=== PATIENT | male | born 1995 | race African-American/Black ===

== ENCOUNTER 2019-09-02 19:08 | Inpatient (IN) | payer OTHER ==
[~2019-09-02] VITALS: Ht 175.3 cm; Wt 61.1 kg
[2019-09-02] MEDS ORDERED: SODIUM CHLORIDE 0.9% 1,000 ML IV ONE (19:22)
[2019-09-02] MEDS ORDERED: PLEASE ENTER ALLERGIES MC SCH (19:30)
[2019-09-02] MEDS ORDERED: SODIUM CHLORIDE 0.9% 1,000ML IVBOLUS ONE ×2 (19:30→20:00)
[2019-09-02] MEDS ORDERED: PLEASE ENTER HEIGHT AND WEIGHT MC SCH (19:30)
[2019-09-02] MEDS ORDERED: SODIUM CHLORIDE FLUSH 10ML SYR IVF ONE ×2 (19:30)
--- NOTE | 2019-09-02 19:35 | NUR ---
LATE ENTRY: PT FRANCISCO JAVIER POST AFTER REPORTEDLY TELLING FRIENDS EARLIER HE DIDN'T WANT TO BE ALIVE ANYMORE. PT REPORTS HISTORY OF DIABETES, HTN, AND IS UNDERGOING HORMONE REPLACEMENT THERAPY TO TRANSITION FROM MALE TO FEMALE. UPON ARRIVAL, EMS FOUND PT FSBS 69. D10 WAS ADMINISTERED VIA PIV AND BLOOD SUGAR IMPROVED TO 112. PT VSS EN ROUTE WITH EKG SHOWING ST DEPRESSION. UPON ARRIVAL TO [facility] ED, PT IS ALERT X 2 AND TACHYPNIC. PT ATTACHED TO TIRE CENTER SUPERVISOR AND VS MACHINES. VSS AT THIS TIME. EKG DONE AT BS AND GIVEN TO DR ASHLEY. SECOND LINE STARTED ON PT AND LABS DRAWN. IV FLUIDS INITATED. DR BAIRES AT BS NOW FOR PT HISTORY AND ASSESSMENT. PT CHANGED INTO GOWN AND PROVIDED A WARM BLANKET AND HAS CALL LIGHT WITHIN REACH. REPEAT FSBS REVEALS GLUCOSE OF [id number]
[2019-09-02 19:37] LABS: MEAN CORPUSCULAR HEMOGLOBIN 29.4 pg (27.5-34.5); MEAN CORPUSCULAR VOLUME 91.8 fL (81-97); MEAN PLATELET VOLUME 7.1 fL (7.4-10.4); PLATELET COUNT 501 x10^3/uL (130-400); RED BLOOD COUNT 5.48 x10^6/uL (4.38-5.82); RED CELL DISTRIBUTION WIDTH 14.5 % (9.4-14.8)
[2019-09-02 19:40] LABS: PH, VENOUS 6.809 pH (7.320-7.420)
[2019-09-02 19:41] LABS: MD YES
--- NOTE | 2019-09-02 19:42 | NUR ---
PT TO CT VIA [facility] AT THIS TIME.
[2019-09-02 19:47] LABS: ALANINE AMINOTRANSFERASE 33 U/L (12-78); ALBUMIN 5.5 g/dL (3.4-5.0); ANION GAP 23 mmol/L (5-15); CALCIUM 7.7 mg/dL (8.5-10.1); CHLORIDE 110 mmol/L (98-107)
--- NOTE | 2019-09-02 19:50 | NUR ---
TASK RN: RECEIVED REPORT FROM REBEL ZHU TO ASSUME CARE OF PT. AT THIS TIME. PT. RETURNED FROM CT AT THIS TIME.
[2019-09-02] MEDS ORDERED: SODIUM BICARBONATE 1 MEQ/ML, 50ML VIAL IVPush ONE (20:00)
[2019-09-02 20:03] LABS: BAND#(MANUAL) 2.86 x10^3/uL; BANDS%(MANUAL) 7 % (0-7); LYMPH#(MANUAL) 1.63 x10^3/uL (1-3.4); LYMPHS% (MANUAL) 4 % (22-44); MONOS#(MANUAL) 2.45 x10^3/uL (0.3-2.7); MONOS% (MANUAL) 6 % (2-9); SEGS% (MANUAL) 83 % (42-75)
[2019-09-02 20:04] LABS: <PLATELET ESTIMATE> INCREASED; <PLT MORPHOLOGY> NORMAL PLT MORPH; <RBC MORPHOLOGY> NORMAL
[2019-09-02] MEDS ORDERED: SODIUM BICARBONATE 1 MEQ/ML, 50ML VIAL ONE (20:04)
[2019-09-02 20:05] LABS: ALKALINE PHOSPHATASE 111 U/L (45-117); BILIRUBIN,TOTAL 0.2 mg/dL (0.2-1.0); TOTAL PROTEIN 11.1 g/dL (6.4-8.2)
[2019-09-02] MEDS ORDERED: CALCIUM CHLORIDE 10%, 10ML SYR ONE (20:05)
[2019-09-02] MEDS ORDERED: INSULIN LISPRO SINGLE DOSE, ER SQ-INSULIN ONE (20:06)
[2019-09-02] MEDS ORDERED: DEXTROSE 50%, 50ML SYRINGE ONE (20:10)
[2019-09-02 20:25] LABS: ACETONE, SERUM Trace (Negative)
--- NOTE | 2019-09-02 20:29 | NUR ---
Dr. Monae at bs. plan to intubate pt. at this time. has been medicated for hyperkalemia.
[2019-09-02] MEDS ORDERED: INSULIN REGULAR 100 UNITS/ML, 3ML VIAL IVPush ONE (20:30)
[2019-09-02] MEDS ORDERED: CALCIUM CHLORIDE 10%, 10ML SYR IVPush ONE ×2 (20:30→22:30)
[2019-09-02] MEDS ORDERED: DEXTROSE 50%, 50ML SYRINGE IVPush ONE (20:30)
[2019-09-02] MEDS ORDERED: SODIUM BICARBONATE 8.4% 150 MEQ in DEXTROSE 5% 1,000 ML IV SCH (21:00)
[2019-09-02] MEDS ORDERED: SPIR100T4 PO (21:29)
[2019-09-02] MEDS ORDERED: ESTR5VIA IM (21:29)
[2019-09-02 21:31] LABS: SALICYLATE LEVEL < 1.7 mg/dL (2.8-20.0)
[2019-09-02] MEDS ORDERED: PROPOFOL 100 ML IV PRN (21:31)
[2019-09-02 21:36] LABS: AMPHETAMINE SCREEN, URINE Negative (Negative); BARBITURATE SCREEN, URINE Negative (Negative); BENZODIAZEPINE SCREEN, URINE Negative (Negative); CANNABINOID SCREEN, URINE Negative (Negative); COCAINE SCREEN, URINE Negative (Negative); METHADONE SCREEN, URINE Negative (Negative); OPIATE SCREEN, URINE Negative (Negative)
[2019-09-02 21:42] LABS: MICROSCOPIC INDICATED
--- NOTE | 2019-09-02 21:50 | NUR ---
DR. HOPKINS AT TO PLACE TEMPORARY DIALYSIS CATHETER. DR. BAIERS AND DR. HAILE SIGNED CONSENT ON BEHALF OF PT FOR EMERGENT PLACEMENT.
[2019-09-02 21:55] LABS: CULTURE INDICATED? YES
[2019-09-02 21:58] LABS: CHOL/HDL RATIO 2.6; LDL/HDL RATIO 0.8 (0.5-3.0)
[2019-09-02] MEDS ORDERED: ETOMIDATE 20 MG/10 ML IV ONE (22:00)
[2019-09-02] MEDS ORDERED: ROCURONIUM 10 MG/ML,10ML IVPush ONE (22:00)
--- NOTE | 2019-09-02 22:00 | NUR ---
DIALYSIS CATH PLACED AND X-RAY COMPELTED.
--- NOTE | 2019-09-02 22:11 | NUR ---
LATE ENTRY: PT. WAS INTUBATED WITH AN 8.0 TUBE @ 2034. AFTER INTUBATION EQUAL CHEST RISE AND FALL BILAT AND EQUAL BREATH SOUNDS BILAT.
--- NOTE | 2019-09-02 22:21 | NUR ---
REASSUMING CARE OF PT FROM REBEL DUBON.
--- NOTE | 2019-09-02 22:21 | NUR ---
REPORT BACK TO REBEL ZHU TO REASSUME PT. CARE.
[2019-09-02] MEDS ORDERED: VANCOMYCIN PER PHARMACY MC PRN (22:30)
[2019-09-02] MEDS ORDERED: PHARMACY MAY ADJ FOR RENAL FX MC PRN (22:30)
[2019-09-02] MEDS ORDERED: SODIUM CHLORIDE FLUSH 10ML SYR IVF PRN (22:30)
--- NOTE | 2019-09-02 22:38 | NUR ---
PT. MEDS TAKEN TO PHARMACY/ SLIP WITH PT. CHART.
--- NOTE | 2019-09-02 22:41 | NUR ---
REPORT OF PT TO REBEL CATES. ALL QUESTIONS ANSWERED.
--- NOTE | 2019-09-02 22:50 | NUR ---
THIS RN ON THE PHONE WITH POISON CONTROL DISCUSSING PT. STORY.
--- NOTE | 2019-09-02 22:54 | NUR ---
POISON CONTROL CASE #[id number]
[2019-09-02] MEDS ORDERED: FOMEPIZOLE 1 GM in SODIUM CHLORIDE 0.9% 100 ML IV ONE (23:00)
--- NOTE | 2019-09-02 23:02 | NUR ---
PT TRANSPORTED TO CCU WITH ASSISTANCE OF WILLAM NAZARIO. RT AT BS TO ASSIST WITH TRANSPORT OF VENTILATOR. ALL QUESTIONS ANSWERED AT ICU BS.
[2019-09-02] MEDS ORDERED: NOREPINEPHRINE 8 MG in SODIUM CHLORIDE 0.9% 242 ML IV PRN (23:22)
[2019-09-02] MEDS ORDERED: ACETAMINOPHEN 650 MG/20.3 ML UDC PO/NG PRN (23:30)
[2019-09-02] MEDS ORDERED: PHARMACOKINETIC CONSULTATION MC ONE (23:30)
[2019-09-02] MEDS ORDERED: GLUCAGON 1 MG IM PRN (23:30)
[2019-09-02] MEDS ORDERED: FAMOTIDINE 20 MG/2 ML IV SCH (23:30)
[2019-09-02] MEDS ORDERED: SENNA 176 MG/5 ML ORAL SOL NG PRN (23:30)
[2019-09-02] MEDS ORDERED: DEXTROSE 4 GM TAB.CHEW PO PRN (23:30)
[2019-09-02] MEDS ORDERED: PIPERACILLIN/TAZO/PMX 3.375GM 50 ML IV SCH (23:30)
[2019-09-02] MEDS ORDERED: DEXTROSE 50%, 50ML SYRINGE IVPush PRN (23:30)
[2019-09-02] MEDS ORDERED: PHARMACOKINETIC MONITORING MC PRN (23:30)
[2019-09-02] MEDS ORDERED: SENNA/DOCUSATE TABLET NG PRN (23:30)
[2019-09-02] MEDS ORDERED: VANCOMYCIN 1,300 MG in SODIUM CHLORIDE 0.9% 250 ML IV ONE (23:30)
[2019-09-02] MEDS ORDERED: BISACODYL 10 MG SUPP PR PRN (23:30)
[2019-09-02] MEDS ORDERED: LACTULOSE 20 GM/30 ML UDC NG PRN (23:30)
[2019-09-02] MEDS ORDERED: LIDOCAINE-MPF 1%, 2ML ENDO PRN (23:30)
[2019-09-02] MEDS ORDERED: PHARMACY MAY ADJ FOR RENAL FX MC SCH (23:30)
[2019-09-03] MEDS: PIPERACILLIN/TAZO/PMX 2.25GM 50 ML IV SCH ×4 (01:04→21:00)
[2019-09-03 02:03] LABS: CREATININE,URINE RANDOM 46.2 mg/dL
[2019-09-03 04:00] VITALS: BP 110/72
[2019-09-03] MEDS: SODIUM CHLORIDE 0.9% IV SCH ×3 (04:36→22:05)
[2019-09-03] MEDS: FOMEPIZOLE IV SCH ×3 (04:36→22:05)
[2019-09-03] MEDS ORDERED: ROCURONIUM 10MG/ML,5ML ONE (05:00)
[2019-09-03] MEDS ORDERED: ETOMIDATE 20 MG/10 ML ONE (05:00)
[2019-09-03] MEDS ORDERED: PROPOFOL 10 MG/ML, 100ML IV ONE (05:00)
[2019-09-03] MEDS: PROPOFOL 100 ML IV PRN ×3 (05:47→21:01)
[2019-09-03 05:49] LABS: ANION GAP 17 mmol/L (5-15); CHLORIDE 101 mmol/L (98-107); CREATININE 2.45 mg/dL (0.7-1.3)
[2019-09-03 06:13] LABS: SALICYLATE LEVEL < 1.7 mg/dL (2.8-20.0)
[2019-09-03] MEDS: HEPARIN 5,000 UNITS/ML, 1ML SQ SCH ×3 (06:31→21:44)
[2019-09-03] MEDS: FAMOTIDINE 20 MG/2 ML IV SCH (06:31)
[2019-09-03] MEDS ORDERED: MAGNESIUM SULFATE/D5W 100 ML IV ONE (07:00)
[2019-09-03] MEDS: THIAMINE 100 MG in SODIUM CHLORIDE 0.9% 50 ML IV SCH (07:00)
[2019-09-03] MEDS ORDERED: THIAMINE 200 MG in SODIUM CHLORIDE 0.9% 50 ML IV ONE (07:00)
[2019-09-03 07:25] LABS: HEMOGRAM NOTE RECHECKED; MEAN CORPUSCULAR HEMOGLOBIN 29.3 pg (27.5-34.5); MEAN CORPUSCULAR HGB CONC 32.7 g/dL (33.2-36.2); MEAN CORPUSCULAR VOLUME 89.5 fL (81-97); MEAN PLATELET VOLUME 6.1 fL (7.4-10.4); PLATELET COUNT 100 x10^3/uL (130-400); RED BLOOD COUNT 4.12 x10^6/uL (4.38-5.82); RED CELL DISTRIBUTION WIDTH 14.1 % (9.4-14.8)
[2019-09-03] MEDS: INSULIN LISPRO 100 UNITS/ML, PEN SQ-INSULIN SCH ×4 (07:53→21:00)
[2019-09-03] MEDS: SODIUM CHLORIDE FLUSH 10ML SYR IVF SCH ×2 (08:00→21:44)
[2019-09-03 08:56] LABS: MD YES
[2019-09-03 08:57] LABS: <RBC MORPHOLOGY> NORMAL; BAND#(MANUAL) 2.35 x10^3/uL; BANDS%(MANUAL) 8 % (0-7); LYMPH#(MANUAL) 1.18 x10^3/uL (1-3.4); LYMPHS% (MANUAL) 4 % (22-44); MONOS#(MANUAL) 1.18 x10^3/uL (0.3-2.7); MONOS% (MANUAL) 4 % (2-9); SEGS% (MANUAL) 84 % (42-75)
[2019-09-03 08:58] LABS: <PLATELET ESTIMATE> DECREASED; <PLT MORPHOLOGY> NORMAL PLT MORPH
[2019-09-03 10:21] LABS: MEAN CORPUSCULAR HEMOGLOBIN 29.6 pg (27.5-34.5); MEAN CORPUSCULAR HGB CONC 33.1 g/dL (33.2-36.2); MEAN CORPUSCULAR VOLUME 89.4 fL (81-97); MEAN PLATELET VOLUME 6.2 fL (7.4-10.4); PLATELET COUNT 105 x10^3/uL (130-400); RED BLOOD COUNT 3.89 x10^6/uL (4.38-5.82); RED CELL DISTRIBUTION WIDTH 13.9 % (9.4-14.8)
[2019-09-03 10:29] LABS: INTERNATIONAL NORMALIZED RATIO 1.09 (0.93-1.1); PROTHROMBIN TIME 11.6 Seconds (9.6-11.5)
[2019-09-03 10:32] LABS: ALBUMIN 3.1 g/dL (3.4-5.0); ANION GAP 11 mmol/L (5-15); CALCIUM 7.6 mg/dL (8.5-10.1); CHLORIDE 99 mmol/L (98-107)
[2019-09-03 10:37] LABS: ALANINE AMINOTRANSFERASE 22 U/L (12-78); ALKALINE PHOSPHATASE 48 U/L (45-117); BILIRUBIN,TOTAL 0.6 mg/dL (0.2-1.0); CREATININE 3.05 mg/dL (0.7-1.3); TOTAL PROTEIN 6.5 g/dL (6.4-8.2)
[2019-09-03 10:42] LABS: MD YES
[2019-09-03 10:43] LABS: BAND#(MANUAL) 2.92 x10^3/uL; BANDS%(MANUAL) 11 % (0-7); LYMPH#(MANUAL) 0.53 x10^3/uL (1-3.4); LYMPHS% (MANUAL) 2 % (22-44); MONOS#(MANUAL) 1.59 x10^3/uL (0.3-2.7); MONOS% (MANUAL) 6 % (2-9); SEG#(MANUAL) 21.47 x10^3/uL (1.8-6.8); SEGS% (MANUAL) 81 % (42-75)
[2019-09-03 10:44] LABS: <PLATELET ESTIMATE> DECREASED; <PLT MORPHOLOGY> NORMAL PLT MORPH; <RBC MORPHOLOGY> NORMAL
[2019-09-03 11:39] LABS: CREATINE KINASE, TOTAL 216 U/L (39-308)
[2019-09-03] MEDS ORDERED: SODIUM BICARBONATE 8.4% 150 MEQ in DEXTROSE 5% 1,000 ML IV SCH (21:00)
[2019-09-03] MEDS ORDERED: LAMOTRIGINE 200 MG TABLET PO SCH (21:00)
[2019-09-03] MEDS: FENTANYL PF 100 MCG/2ML IVPush PRN ×2 (21:44→23:42)
[2019-09-03] MEDS: SODIUM CHLORIDE 0.9% 1,000 ML IV SCH (21:44)
[2019-09-04] MEDS: PROPOFOL 100 ML IV PRN ×2 (00:20→04:28)
[2019-09-04] MEDS: PIPERACILLIN/TAZO/PMX 2.25GM 50 ML IV SCH ×4 (01:59→21:43)
[2019-09-04] MEDS: INSULIN LISPRO 100 UNITS/ML, PEN SQ-INSULIN SCH ×4 (04:00→22:00)
[2019-09-04] MEDS: FAMOTIDINE 20 MG/2 ML IV SCH (04:28)
[2019-09-04] MEDS: HEPARIN 5,000 UNITS/ML, 1ML SQ SCH ×3 (04:28→20:21)
[2019-09-04 05:02] LABS: ALBUMIN 2.9 g/dL (3.4-5.0); ANION GAP 7 mmol/L (5-15); CALCIUM 8.2 mg/dL (8.5-10.1); CHLORIDE 98 mmol/L (98-107)
[2019-09-04 05:07] LABS: ALANINE AMINOTRANSFERASE 19 U/L (12-78); ALKALINE PHOSPHATASE 49 U/L (45-117); BILIRUBIN,TOTAL 0.6 mg/dL (0.2-1.0); CREATININE 3.61 mg/dL (0.7-1.3); TOTAL IRON BINDING CAPACITY 257 mcg/dL (250-450); TOTAL PROTEIN 6.7 g/dL (6.4-8.2); VANCOMYCIN,RANDOM 9.3 mcg/mL
[2019-09-04 05:10] LABS: % IRON SATURATION 16 % (20-55); IRON LEVEL 42 mcg/dL (65-175)
[2019-09-04 05:18] LABS: MEAN CORPUSCULAR HEMOGLOBIN 29.4 pg (27.5-34.5); MEAN CORPUSCULAR HGB CONC 32.3 g/dL (33.2-36.2); MEAN PLATELET VOLUME 6.8 fL (7.4-10.4); PLATELET COUNT 143 x10^3/uL (130-400); RED CELL DISTRIBUTION WIDTH 13.4 % (9.4-14.8)
[2019-09-04 05:49] LABS: MD YES
[2019-09-04 05:50] LABS: MONOS#(MANUAL) 0.71 x10^3/uL (0.3-2.7); MONOS% (MANUAL) 3 % (2-9)
[2019-09-04 05:51] LABS: <RBC MORPHOLOGY> NORMAL; BAND#(MANUAL) 0.95 x10^3/uL; BANDS%(MANUAL) 4 % (0-7); LYMPHS% (MANUAL) 8 % (22-44); SEG#(MANUAL) 20.23 x10^3/uL (1.8-6.8); SEGS% (MANUAL) 85 % (42-75)
[2019-09-04 05:52] LABS: <PLATELET ESTIMATE> ADEQUATE; <PLT MORPHOLOGY> NORMAL PLT MORPH
[2019-09-04] MEDS: THIAMINE 100 MG in SODIUM CHLORIDE 0.9% 50 ML IV SCH (07:53)
[2019-09-04] MEDS ORDERED: ARIPIPRAZOLE 10 MG TABLET PO SCH (09:00)
[2019-09-04] MEDS ORDERED: VANCOMYCIN 1,300 MG in SODIUM CHLORIDE 0.9% 250 ML IV ONE (10:00)
[2019-09-04] MEDS: SODIUM CHLORIDE 0.9% IV SCH (10:09)
[2019-09-04] MEDS: FOMEPIZOLE IV SCH (10:09)
[2019-09-04 10:21] LABS: ALBUMIN 3.1 g/dL (3.4-5.0); ANION GAP 7 mmol/L (5-15); CALCIUM 8.3 mg/dL (8.5-10.1); CHLORIDE 102 mmol/L (98-107); CREATININE 4.48 mg/dL (0.7-1.3)
[2019-09-04] MEDS: SODIUM CHLORIDE FLUSH 10ML SYR IVF SCH ×2 (11:21→20:21)
[2019-09-04] MEDS: SODIUM CHLORIDE 0.9% 1,000 ML IV SCH (19:40)
[2019-09-04 19:59] VITALS: BP 134/76
[2019-09-04] MEDS: FOMEPIZOLE 1 GM in SODIUM CHLORIDE 0.9% 100 ML IV SCH (22:17)
[2019-09-05 00:17] VITALS: BP 111/62
[2019-09-05 03:53] LABS: MEAN CORPUSCULAR HEMOGLOBIN 29.5 pg (27.5-34.5); MEAN CORPUSCULAR HGB CONC 33.3 g/dL (33.2-36.2); MEAN CORPUSCULAR VOLUME 88.5 fL (81-97); MEAN PLATELET VOLUME 6.4 fL (7.4-10.4); PLATELET COUNT 161 x10^3/uL (130-400); RED CELL DISTRIBUTION WIDTH 13.3 % (9.4-14.8)
[2019-09-05 04:02] LABS: ALANINE AMINOTRANSFERASE 21 U/L (12-78); ALBUMIN 2.8 g/dL (3.4-5.0); ANION GAP 10 mmol/L (5-15); CHLORIDE 100 mmol/L (98-107); CREATININE 7.19 mg/dL (0.7-1.3)
[2019-09-05 04:04] LABS: ALKALINE PHOSPHATASE 46 U/L (45-117); BILIRUBIN,TOTAL 0.7 mg/dL (0.2-1.0); TOTAL PROTEIN 6.4 g/dL (6.4-8.2)
[2019-09-05 04:12] LABS: MD YES
[2019-09-05 04:29] LABS: EOS#(MANUAL) 0.33 x10^3/uL (0.0-0.4); EOS% (MANUAL) 2 % (1-7); LYMPHS% (MANUAL) 14 % (22-44); MONOS#(MANUAL) 0.98 x10^3/uL (0.3-2.7); MONOS% (MANUAL) 6 % (2-9); SEG#(MANUAL) 12.79 x10^3/uL (1.8-6.8); SEGS% (MANUAL) 78 % (42-75)
[2019-09-05 04:47] LABS: <PLATELET ESTIMATE> ADEQUATE; <PLT MORPHOLOGY> NORMAL PLT MORPH; <RBC MORPHOLOGY> NORMAL
[2019-09-05] MEDS: HEPARIN 5,000 UNITS/ML, 1ML SQ SCH ×2 (05:02→13:00)
[2019-09-05] MEDS: FAMOTIDINE 20 MG/2 ML IV SCH (05:02)
[2019-09-05] MEDS: PIPERACILLIN/TAZO/PMX 2.25GM 50 ML IV SCH ×3 (05:38→22:39)
[2019-09-05 06:40] VITALS: BP 121/71
[2019-09-05] MEDS: INSULIN LISPRO 100 UNITS/ML, PEN SQ-INSULIN SCH ×4 (07:59→20:07)
[2019-09-05] MEDS ORDERED: LACTULOSE 10 GM/15 ML UDC PO PRN (08:00)
[2019-09-05] MEDS: SENNA/DOCUSATE TABLET PO SCH ×2 (08:46→21:00)
[2019-09-05] MEDS: SODIUM CHLORIDE FLUSH 10ML SYR IVF SCH ×2 (08:47→20:10)
[2019-09-05] MEDS ORDERED: FAMOTIDINE 20 MG TABLET PO SCH (09:00)
[2019-09-05] MEDS: FOMEPIZOLE 1 GM in SODIUM CHLORIDE 0.9% 100 ML IV SCH (13:00)
[2019-09-05] MEDS: SODIUM CHLORIDE 0.9% 1,000 ML IV SCH (15:09)
[2019-09-05 15:52] VITALS: BP 118/81
[2019-09-05 20:05] VITALS: BP 155/88
[2019-09-05] MEDS: FAMOTIDINE 20 MG TABLET PO SCH (20:10)
[2019-09-06] MEDS: HEPARIN 5,000 UNITS/ML, 1ML SQ SCH ×4 (01:04→22:02)
[2019-09-06 01:07] VITALS: BP 147/91
[2019-09-06] MEDS: FOMEPIZOLE 1 GM in SODIUM CHLORIDE 0.9% 100 ML IV SCH ×2 (02:48→15:34)
[2019-09-06] MEDS: SODIUM CHLORIDE 0.9% 1,000 ML IV SCH ×2 (02:48→17:41)
[2019-09-06] MEDS: PIPERACILLIN/TAZO/PMX 2.25GM 50 ML IV SCH ×3 (05:44→22:03)
[2019-09-06 05:59] LABS: BASOPHILS # (AUTO) 0.04 x10^3/uL (0-0.1); BASOPHILS % (AUTO) 0 % (0-1); EOSINOPHILS % (AUTO) 4 % (1-7); LYMPHOCYTES # (AUTO) 1.49 x10^3/uL (1-3.4); LYMPHOCYTES % (AUTO) 14 % (22-44); MD NO; MEAN CORPUSCULAR HEMOGLOBIN 29.3 pg (27.5-34.5); MEAN CORPUSCULAR HGB CONC 32.9 g/dL (33.2-36.2); MEAN CORPUSCULAR VOLUME 88.9 fL (81-97); MEAN PLATELET VOLUME 7.1 fL (7.4-10.4); MONOCYTES # (AUTO) 0.91 x10^3/uL (0.2-0.8); MONOCYTES % (AUTO) 9 % (2-9); NEUTROPHILS # (AUTO) 7.88 x10^3/uL (1.8-6.8); NEUTROPHILS % (AUTO) 74 % (42-75); PLATELET COUNT 187 x10^3/uL (130-400); RED BLOOD COUNT 3.79 x10^6/uL (4.38-5.82); RED CELL DISTRIBUTION WIDTH 13.1 % (9.4-14.8)
[2019-09-06 06:04] LABS: CHLORIDE 97 mmol/L (98-107)
[2019-09-06 06:11] LABS: ALANINE AMINOTRANSFERASE 23 U/L (12-78); ALBUMIN 2.6 g/dL (3.4-5.0); ALKALINE PHOSPHATASE 49 U/L (45-117); ANION GAP 11 mmol/L (5-15); BILIRUBIN,TOTAL 0.5 mg/dL (0.2-1.0); CALCIUM 8.2 mg/dL (8.5-10.1); CREATININE 6.72 mg/dL (0.7-1.3); TOTAL PROTEIN 6.2 g/dL (6.4-8.2)
[2019-09-06] MEDS: INSULIN LISPRO 100 UNITS/ML, PEN SQ-INSULIN SCH ×4 (07:00→21:00)
[2019-09-06] MEDS ORDERED: POTASSIUM CHLORIDE 20 MEQ TAB.ER.PRT PO ONE (07:30)
[2019-09-06 07:38] VITALS: BP 142/94
[2019-09-06] MEDS: SODIUM CHLORIDE FLUSH 10ML SYR IVF SCH ×2 (09:03→21:00)
[2019-09-06] MEDS: SENNA/DOCUSATE TABLET PO SCH ×2 (09:03→21:00)
[2019-09-06] MEDS: LOSARTAN 50MG TABLET PO SCH (11:33)
[2019-09-06 11:35] VITALS: BP 143/88
[2019-09-06 14:01] VITALS: BP 151/97
[2019-09-06] MEDS: FAMOTIDINE 20 MG TABLET PO SCH (20:10)
[2019-09-06 20:13] VITALS: BP 158/97
[2019-09-06] MEDS: ONDANSETRON 2MG/ML, 2ML IVPush PRN ×2 (20:20→21:20)
[2019-09-07] MEDS: FOMEPIZOLE 1 GM in SODIUM CHLORIDE 0.9% 100 ML IV SCH (02:29)
[2019-09-07 02:46] VITALS: BP 135/89
[2019-09-07] MEDS: PIPERACILLIN/TAZO/PMX 2.25GM 50 ML IV SCH ×2 (05:30→18:34)
[2019-09-07] MEDS: SODIUM CHLORIDE 0.9% 1,000 ML IV SCH ×2 (05:30→22:15)
[2019-09-07 06:05] LABS: BASOPHILS # (AUTO) 0.04 x10^3/uL (0-0.1); BASOPHILS % (AUTO) 0 % (0-1); EOSINOPHILS # (AUTO) 0.73 x10^3/uL (0-0.4); EOSINOPHILS % (AUTO) 7 % (1-7); LYMPHOCYTES # (AUTO) 1.71 x10^3/uL (1-3.4); LYMPHOCYTES % (AUTO) 16 % (22-44); MD NO; MEAN CORPUSCULAR HEMOGLOBIN 29.6 pg (27.5-34.5); MEAN CORPUSCULAR HGB CONC 33.2 g/dL (33.2-36.2); MEAN PLATELET VOLUME 7.3 fL (7.4-10.4); MONOCYTES # (AUTO) 1.13 x10^3/uL (0.2-0.8); MONOCYTES % (AUTO) 10 % (2-9); NEUTROPHILS # (AUTO) 7.23 x10^3/uL (1.8-6.8); NEUTROPHILS % (AUTO) 67 % (42-75); PLATELET COUNT 254 x10^3/uL (130-400); RED BLOOD COUNT 3.88 x10^6/uL (4.38-5.82); RED CELL DISTRIBUTION WIDTH 12.9 % (9.4-14.8)
[2019-09-07 06:13] LABS: CHLORIDE 99 mmol/L (98-107)
[2019-09-07 06:18] LABS: ALANINE AMINOTRANSFERASE 27 U/L (12-78); ALBUMIN 2.5 g/dL (3.4-5.0); ALKALINE PHOSPHATASE 54 U/L (45-117); ANION GAP 11 mmol/L (5-15); BILIRUBIN,TOTAL 0.5 mg/dL (0.2-1.0); CREATININE 8.96 mg/dL (0.7-1.3)
[2019-09-07] MEDS: INSULIN LISPRO 100 UNITS/ML, PEN SQ-INSULIN SCH ×4 (07:00→20:15)
[2019-09-07 08:03] VITALS: BP 154/91
[2019-09-07] MEDS: HEPARIN 5,000 UNITS/ML, 1ML SQ SCH ×2 (08:07→18:34)
[2019-09-07] MEDS: LOSARTAN 50MG TABLET PO SCH (08:07)
[2019-09-07] MEDS: SODIUM CHLORIDE FLUSH 10ML SYR IVF SCH ×2 (08:08→20:13)
[2019-09-07] MEDS: SENNA/DOCUSATE TABLET PO SCH ×2 (08:08→20:10)
[2019-09-07 11:40] VITALS: BP 134/76
[2019-09-07 13:48] VITALS: BP 142/89
[2019-09-07 20:03] VITALS: BP 141/80
[2019-09-07] MEDS: FAMOTIDINE 20 MG TABLET PO SCH (20:10)
[2019-09-07] MEDS: ACETAMINOPHEN 325 MG TABLET PO PRN (20:11)
[2019-09-07] MEDS ORDERED: TEMAZEPAM 15 MG CAPSULE PO PRN (21:30)
[2019-09-08 00:57] VITALS: BP 122/73
[2019-09-08] MEDS: PIPERACILLIN/TAZO/PMX 2.25GM 50 ML IV SCH ×3 (02:38→18:25)
[2019-09-08] MEDS: HEPARIN 5,000 UNITS/ML, 1ML SQ SCH ×3 (02:38→17:40)
[2019-09-08 06:13] LABS: ALANINE AMINOTRANSFERASE 43 U/L (12-78); ALBUMIN 2.4 g/dL (3.4-5.0); ANION GAP 7 mmol/L (5-15); CHLORIDE 99 mmol/L (98-107); CREATININE 7.32 mg/dL (0.7-1.3)
[2019-09-08 06:16] LABS: ALKALINE PHOSPHATASE 50 U/L (45-117); BILIRUBIN,TOTAL 0.5 mg/dL (0.2-1.0); TOTAL PROTEIN 5.8 g/dL (6.4-8.2)
[2019-09-08 06:23] LABS: MEAN CORPUSCULAR HEMOGLOBIN 29.3 pg (27.5-34.5); MEAN CORPUSCULAR HGB CONC 33.2 g/dL (33.2-36.2); MEAN CORPUSCULAR VOLUME 88.2 fL (81-97); RED BLOOD COUNT 3.98 x10^6/uL (4.38-5.82); RED CELL DISTRIBUTION WIDTH 12.9 % (9.4-14.8)
[2019-09-08 06:56] LABS: BASOPHILS # (AUTO) 0.04 x10^3/uL (0-0.1); BASOPHILS % (AUTO) 0 % (0-1); EOSINOPHILS # (AUTO) 0.86 x10^3/uL (0-0.4); EOSINOPHILS % (AUTO) 7 % (1-7); LYMPHOCYTES # (AUTO) 1.83 x10^3/uL (1-3.4); LYMPHOCYTES % (AUTO) 14 % (22-44); MD SCAN; MEAN PLATELET VOLUME 7.1 fL (7.4-10.4); MONOCYTES % (AUTO) 12 % (2-9); NEUTROPHILS # (AUTO) 8.85 x10^3/uL (1.8-6.8); NEUTROPHILS % (AUTO) 68 % (42-75); PLATELET COUNT 167 x10^3/uL (130-400)
[2019-09-08] MEDS: INSULIN LISPRO 100 UNITS/ML, PEN SQ-INSULIN SCH ×4 (07:00→19:36)
[2019-09-08 07:44] VITALS: BP 132/89
[2019-09-08] MEDS: SENNA/DOCUSATE TABLET PO SCH ×2 (08:44→20:13)
[2019-09-08] MEDS: SODIUM CHLORIDE FLUSH 10ML SYR IVF SCH ×2 (08:44→20:14)
[2019-09-08 12:24] VITALS: BP 152/91
[2019-09-08] MEDS: ACETAMINOPHEN 325 MG TABLET PO PRN (15:59)
[2019-09-08] MEDS: SODIUM CHLORIDE 0.9% 1,000 ML IV SCH (17:34)
[2019-09-08 18:22] VITALS: BP 146/88
[2019-09-08] MEDS: FAMOTIDINE 20 MG TABLET PO SCH (20:13)
[2019-09-08] MEDS ORDERED: TEMAZEPAM 15 MG CAPSULE PO ONE (21:00)
[2019-09-09 01:38] VITALS: BP 142/78
[2019-09-09] MEDS: HEPARIN 5,000 UNITS/ML, 1ML SQ SCH ×3 (02:15→17:20)
[2019-09-09] MEDS: PIPERACILLIN/TAZO/PMX 2.25GM 50 ML IV SCH ×2 (02:19→12:17)
[2019-09-09] MEDS: SODIUM CHLORIDE 0.9% 1,000 ML IV SCH (05:50)
[2019-09-09] MEDS: INSULIN LISPRO 100 UNITS/ML, PEN SQ-INSULIN SCH ×4 (07:00→20:28)
[2019-09-09 07:56] VITALS: BP 150/91
[2019-09-09] MEDS: SODIUM CHLORIDE FLUSH 10ML SYR IVF SCH ×2 (09:00→20:27)
[2019-09-09 12:07] LABS: BASOPHILS # (AUTO) 0.09 x10^3/uL (0-0.1); BASOPHILS % (AUTO) 1 % (0-1); EOSINOPHILS # (AUTO) 0.68 x10^3/uL (0-0.4); EOSINOPHILS % (AUTO) 5 % (1-7); LYMPHOCYTES # (AUTO) 1.11 x10^3/uL (1-3.4); LYMPHOCYTES % (AUTO) 9 % (22-44); MD NO; MEAN CORPUSCULAR HEMOGLOBIN 29.7 pg (27.5-34.5); MEAN CORPUSCULAR HGB CONC 33.1 g/dL (33.2-36.2); MEAN CORPUSCULAR VOLUME 89.6 fL (81-97); MEAN PLATELET VOLUME 7.2 fL (7.4-10.4); MONOCYTES # (AUTO) 1.29 x10^3/uL (0.2-0.8); MONOCYTES % (AUTO) 10 % (2-9); NEUTROPHILS # (AUTO) 9.61 x10^3/uL (1.8-6.8); NEUTROPHILS % (AUTO) 75 % (42-75); PLATELET COUNT 235 x10^3/uL (130-400); RED BLOOD COUNT 3.61 x10^6/uL (4.38-5.82); RED CELL DISTRIBUTION WIDTH 13.6 % (9.4-14.8)
[2019-09-09 12:15] LABS: ALBUMIN 2.5 g/dL (3.4-5.0); ANION GAP 8 mmol/L (5-15); CALCIUM 7.6 mg/dL (8.5-10.1); CHLORIDE 98 mmol/L (98-107)
[2019-09-09] MEDS: SENNA/DOCUSATE TABLET PO SCH ×2 (12:16→20:27)
[2019-09-09 12:18] LABS: ALANINE AMINOTRANSFERASE 87 U/L (12-78); ALKALINE PHOSPHATASE 53 U/L (45-117); BILIRUBIN,TOTAL 0.4 mg/dL (0.2-1.0); CREATININE 4.89 mg/dL (0.7-1.3)
[2019-09-09 12:53] VITALS: BP 155/107
[2019-09-09 19:22] VITALS: BP 149/87
[2019-09-09] MEDS: AMOXICILLIN/CLAV 875-125MG TABLET PO SCH (20:27)
[2019-09-09] MEDS: FAMOTIDINE 20 MG TABLET PO SCH (20:27)
[2019-09-10 01:25] VITALS: BP 145/81
[2019-09-10] MEDS: HEPARIN 5,000 UNITS/ML, 1ML SQ SCH ×3 (01:56→17:16)
[2019-09-10 06:30] LABS: MEAN CORPUSCULAR HEMOGLOBIN 29.9 pg (27.5-34.5); MEAN CORPUSCULAR HGB CONC 33.4 g/dL (33.2-36.2); MEAN CORPUSCULAR VOLUME 89.5 fL (81-97); MEAN PLATELET VOLUME 7.2 fL (7.4-10.4); PLATELET COUNT 341 x10^3/uL (130-400); RED BLOOD COUNT 3.44 x10^6/uL (4.38-5.82); RED CELL DISTRIBUTION WIDTH 13.4 % (9.4-14.8)
[2019-09-10 06:34] LABS: ALBUMIN 2.5 g/dL (3.4-5.0); ANION GAP 12 mmol/L (5-15); CALCIUM 8.4 mg/dL (8.5-10.1); CHLORIDE 98 mmol/L (98-107); CREATININE 7.52 mg/dL (0.7-1.3)
[2019-09-10] MEDS: INSULIN LISPRO 100 UNITS/ML, PEN SQ-INSULIN SCH ×4 (07:00→20:13)
[2019-09-10 07:07] LABS: BASOPHILS # (AUTO) 0.05 x10^3/uL (0-0.1); BASOPHILS % (AUTO) 0 % (0-1); EOSINOPHILS # (AUTO) 0.51 x10^3/uL (0-0.4); EOSINOPHILS % (AUTO) 5 % (1-7); LYMPHOCYTES # (AUTO) 1.75 x10^3/uL (1-3.4); LYMPHOCYTES % (AUTO) 17 % (22-44); MD SCAN; MONOCYTES # (AUTO) 1.36 x10^3/uL (0.2-0.8); MONOCYTES % (AUTO) 13 % (2-9); NEUTROPHILS # (AUTO) 6.87 x10^3/uL (1.8-6.8); NEUTROPHILS % (AUTO) 65 % (42-75)
[2019-09-10 07:33] VITALS: BP 157/78
[2019-09-10] MEDS: SENNA/DOCUSATE TABLET PO SCH ×2 (08:36→20:13)
[2019-09-10] MEDS: AMOXICILLIN/CLAV 875-125MG TABLET PO SCH ×2 (08:36→20:12)
[2019-09-10] MEDS: SODIUM CHLORIDE FLUSH 10ML SYR IVF SCH ×2 (08:37→20:12)
[2019-09-10] MEDS: ESTRADIOL CYPIONATE IM SCH (12:08)
[2019-09-10 14:21] VITALS: BP 137/82
[2019-09-10 20:01] VITALS: BP 150/84
[2019-09-10] MEDS: FAMOTIDINE 20 MG TABLET PO SCH (20:12)
[2019-09-10] MEDS: maalox/diphenh/lido/sucralfate 5 ML PO PRN (20:27)
[2019-09-11 01:27] VITALS: BP 154/92
[2019-09-11] MEDS: HEPARIN 5,000 UNITS/ML, 1ML SQ SCH ×3 (01:33→17:50)
[2019-09-11] MEDS: INSULIN LISPRO 100 UNITS/ML, PEN SQ-INSULIN SCH ×4 (07:00→20:29)
[2019-09-11 07:57] LABS: ALBUMIN 2.7 g/dL (3.4-5.0); ANION GAP 11 mmol/L (5-15); CALCIUM 8.2 mg/dL (8.5-10.1); CHLORIDE 97 mmol/L (98-107)
[2019-09-11 07:59] LABS: CREATININE 9.33 mg/dL (0.7-1.3)
[2019-09-11] MEDS: SODIUM CHLORIDE FLUSH 10ML SYR IVF SCH ×2 (09:00→20:29)
[2019-09-11] MEDS ORDERED: POTASSIUM CHLORIDE 20 MEQ TAB.ER.PRT PO ONE ×2 (09:00→17:00)
[2019-09-11] MEDS: SENNA/DOCUSATE TABLET PO SCH ×2 (09:00→20:29)
[2019-09-11 09:16] LABS: MEAN CORPUSCULAR HEMOGLOBIN 29.9 pg (27.5-34.5); MEAN CORPUSCULAR HGB CONC 33.1 g/dL (33.2-36.2); MEAN CORPUSCULAR VOLUME 90.5 fL (81-97); MEAN PLATELET VOLUME 6.7 fL (7.4-10.4); PLATELET COUNT 514 x10^3/uL (130-400); RED BLOOD COUNT 3.26 x10^6/uL (4.38-5.82); RED CELL DISTRIBUTION WIDTH 13.5 % (9.4-14.8)
[2019-09-11 09:25] LABS: MD YES
[2019-09-11 09:31] LABS: <PLATELET ESTIMATE> INCREASED; <PLT MORPHOLOGY> NORMAL PLT MORPH; EOS#(MANUAL) 0.43 x10^3/uL (0.0-0.4); EOS% (MANUAL) 4 % (1-7); LYMPH#(MANUAL) 1.61 x10^3/uL (1-3.4); LYMPHS% (MANUAL) 15 % (22-44); MONOS#(MANUAL) 0.86 x10^3/uL (0.3-2.7); MONOS% (MANUAL) 8 % (2-9); SEG#(MANUAL) 7.81 x10^3/uL (1.8-6.8); SEGS% (MANUAL) 73 % (42-75)
[2019-09-11 09:32] LABS: <RBC MORPHOLOGY> NORMAL
[2019-09-11 13:39] VITALS: BP 164/92
[2019-09-11] MEDS: AMOXICILLIN/CLAV 875-125MG TABLET PO SCH ×2 (14:11→20:29)
[2019-09-11] MEDS: maalox/diphenh/lido/sucralfate 5 ML PO PRN (16:52)
[2019-09-11 18:32] VITALS: BP 153/83
[2019-09-11] MEDS: FAMOTIDINE 20 MG TABLET PO SCH (20:29)
[2019-09-12] MEDS: HEPARIN 5,000 UNITS/ML, 1ML SQ SCH ×3 (02:52→17:33)
[2019-09-12] MEDS: INSULIN LISPRO 100 UNITS/ML, PEN SQ-INSULIN SCH ×4 (07:53→20:26)
[2019-09-12 08:32] LABS: MEAN CORPUSCULAR HEMOGLOBIN 29.7 pg (27.5-34.5); MEAN CORPUSCULAR HGB CONC 32.9 g/dL (33.2-36.2); MEAN CORPUSCULAR VOLUME 90.2 fL (81-97); MEAN PLATELET VOLUME 6.6 fL (7.4-10.4); PLATELET COUNT 604 x10^3/uL (130-400); RED BLOOD COUNT 3.36 x10^6/uL (4.38-5.82); RED CELL DISTRIBUTION WIDTH 14.1 % (9.4-14.8)
[2019-09-12 08:33] LABS: ALBUMIN 2.7 g/dL (3.4-5.0); ANION GAP 12 mmol/L (5-15); CALCIUM 8.2 mg/dL (8.5-10.1); CHLORIDE 100 mmol/L (98-107)
[2019-09-12 08:34] LABS: CREATININE 7.09 mg/dL (0.7-1.3)
[2019-09-12 08:54] LABS: BASOPHILS # (AUTO) 0.06 x10^3/uL (0-0.1); BASOPHILS % (AUTO) 1 % (0-1); EOSINOPHILS # (AUTO) 0.54 x10^3/uL (0-0.4); EOSINOPHILS % (AUTO) 5 % (1-7); LYMPHOCYTES # (AUTO) 1.81 x10^3/uL (1-3.4); LYMPHOCYTES % (AUTO) 16 % (22-44); MD SCAN; MONOCYTES # (AUTO) 1.35 x10^3/uL (0.2-0.8); MONOCYTES % (AUTO) 12 % (2-9); NEUTROPHILS # (AUTO) 7.85 x10^3/uL (1.8-6.8); NEUTROPHILS % (AUTO) 68 % (42-75)
[2019-09-12 08:56] VITALS: BP 162/100
[2019-09-12] MEDS: SENNA/DOCUSATE TABLET PO SCH ×2 (09:11→20:25)
[2019-09-12] MEDS: SODIUM CHLORIDE FLUSH 10ML SYR IVF SCH ×2 (09:12→20:25)
[2019-09-12 12:21] VITALS: BP 168/94
[2019-09-12 20:34] VITALS: BP 142/86
[2019-09-13 01:35] VITALS: BP 161/92
[2019-09-13] MEDS: HEPARIN 5,000 UNITS/ML, 1ML SQ SCH ×3 (01:50→16:52)
[2019-09-13 06:27] LABS: ALBUMIN 2.9 g/dL (3.4-5.0); ANION GAP 9 mmol/L (5-15); CALCIUM 8.8 mg/dL (8.5-10.1); CHLORIDE 101 mmol/L (98-107); CREATININE 7.97 mg/dL (0.7-1.3)
[2019-09-13] MEDS: INSULIN LISPRO 100 UNITS/ML, PEN SQ-INSULIN SCH ×4 (07:00→20:57)
[2019-09-13] MEDS: SODIUM CHLORIDE FLUSH 10ML SYR IVF SCH ×2 (09:00→20:57)
[2019-09-13] MEDS: SENNA/DOCUSATE TABLET PO SCH ×2 (09:13→20:56)
[2019-09-13 09:43] VITALS: BP 158/92
[2019-09-13 13:55] VITALS: BP 145/89
[2019-09-13 18:56] VITALS: BP 166/110
[2019-09-13] MEDS: ACETAMINOPHEN 325 MG TABLET PO PRN (20:56)
[2019-09-14] MEDS: HEPARIN 5,000 UNITS/ML, 1ML SQ SCH ×2 (02:25→09:16)
[2019-09-14 03:40] VITALS: BP 165/110
[2019-09-14] MEDS: INSULIN LISPRO 100 UNITS/ML, PEN SQ-INSULIN SCH ×4 (07:00→23:32)
[2019-09-14 07:06] VITALS: BP 133/88
[2019-09-14 08:18] LABS: MEAN CORPUSCULAR HEMOGLOBIN 30.4 pg (27.5-34.5); MEAN CORPUSCULAR VOLUME 89.3 fL (81-97); MEAN PLATELET VOLUME 6.7 fL (7.4-10.4); PLATELET COUNT 751 x10^3/uL (130-400); RED CELL DISTRIBUTION WIDTH 14.3 % (9.4-14.8)
[2019-09-14 08:24] LABS: ALBUMIN 3.1 g/dL (3.4-5.0); ANION GAP 9 mmol/L (5-15); CALCIUM 8.9 mg/dL (8.5-10.1); CHLORIDE 102 mmol/L (98-107); CREATININE 7.82 mg/dL (0.7-1.3)
[2019-09-14] MEDS ORDERED: maalox/diphenh/lido/sucralfate 5 ML PO PRN (08:30)
[2019-09-14 08:39] LABS: BASOPHILS # (AUTO) 0.08 x10^3/uL (0-0.1); BASOPHILS % (AUTO) 1 % (0-1); EOSINOPHILS # (AUTO) 0.36 x10^3/uL (0-0.4); EOSINOPHILS % (AUTO) 4 % (1-7); LYMPHOCYTES # (AUTO) 1.29 x10^3/uL (1-3.4); LYMPHOCYTES % (AUTO) 14 % (22-44); MD SCAN; MONOCYTES # (AUTO) 1.03 x10^3/uL (0.2-0.8); MONOCYTES % (AUTO) 11 % (2-9); NEUTROPHILS # (AUTO) 6.48 x10^3/uL (1.8-6.8); NEUTROPHILS % (AUTO) 70 % (42-75)
[2019-09-14] MEDS: SODIUM CHLORIDE FLUSH 10ML SYR IVF SCH ×2 (09:00→23:32)
[2019-09-14] MEDS: SENNA/DOCUSATE TABLET PO SCH (09:16)
[2019-09-14 13:01] VITALS: BP 132/92
[2019-09-14] MEDS ORDERED: VANCOMYCIN PER PHARMACY MC PRN (13:30)
[2019-09-14] MEDS ORDERED: PHARMACY MAY ADJ FOR RENAL FX MC PRN (13:30)
[2019-09-14] MEDS ORDERED: PHARMACOKINETIC MONITORING MC PRN (14:00)
[2019-09-14] MEDS ORDERED: VANCOMYCIN 1,300 MG in SODIUM CHLORIDE 0.9% 250 ML IV ONE ×3 (14:00→20:00)
[2019-09-14] MEDS ORDERED: PHARMACOKINETIC CONSULTATION MC ONE (14:00)
[2019-09-14 14:04] LABS: MICROSCOPIC INDICATED
[2019-09-14] MEDS ORDERED: ZIPRASIDONE 20 MG INJ IM PRN (19:30)
[2019-09-15] VITALS (9 sets, daily range): BP systolic 124–171; BP diastolic 85–109
[2019-09-15] MEDS: HEPARIN 5,000 UNITS/ML, 1ML SQ SCH ×3 (01:04→17:31)
[2019-09-15] MEDS: DILTIAZEM 120 MG CAP.ER.12H PO SCH ×2 (01:05→23:02)
[2019-09-15] MEDS: PIPERACILLIN/TAZO/PMX 2.25GM 50 ML IV SCH ×3 (01:22→17:31)
[2019-09-15] MEDS: SENNA/DOCUSATE TABLET PO SCH ×3 (01:22→23:01)
[2019-09-15 05:37] LABS: MEAN CORPUSCULAR HEMOGLOBIN 29.5 pg (27.5-34.5); MEAN CORPUSCULAR VOLUME 89.4 fL (81-97); MEAN PLATELET VOLUME 6.5 fL (7.4-10.4); PLATELET COUNT 587 x10^3/uL (130-400); RED BLOOD COUNT 3.42 x10^6/uL (4.38-5.82)
[2019-09-15 05:45] LABS: ANION GAP 9 mmol/L (5-15); CALCIUM 8.5 mg/dL (8.5-10.1); CHLORIDE 105 mmol/L (98-107)
[2019-09-15 05:46] LABS: CREATININE 5.63 mg/dL (0.7-1.3)
[2019-09-15 06:03] LABS: BASOPHILS # (AUTO) 0.06 x10^3/uL (0-0.1); BASOPHILS % (AUTO) 1 % (0-1); EOSINOPHILS # (AUTO) 0.19 x10^3/uL (0-0.4); EOSINOPHILS % (AUTO) 2 % (1-7); LYMPHOCYTES # (AUTO) 1.81 x10^3/uL (1-3.4); LYMPHOCYTES % (AUTO) 21 % (22-44); MD SCAN; MONOCYTES # (AUTO) 1.22 x10^3/uL (0.2-0.8); MONOCYTES % (AUTO) 15 % (2-9); NEUTROPHILS # (AUTO) 5.15 x10^3/uL (1.8-6.8); NEUTROPHILS % (AUTO) 61 % (42-75)
[2019-09-15] MEDS: INSULIN LISPRO 100 UNITS/ML, PEN SQ-INSULIN SCH ×4 (07:37→21:00)
[2019-09-15] MEDS: ACETAMINOPHEN 325 MG TABLET PO PRN (07:38)
[2019-09-15] MEDS: SODIUM CHLORIDE FLUSH 10ML SYR IVF SCH ×2 (09:51→23:05)
[2019-09-15 13:02] LABS: O2 FLOW 1 L/min
[2019-09-16 00:51] VITALS: BP 166/101
[2019-09-16] MEDS: HEPARIN 5,000 UNITS/ML, 1ML SQ SCH ×3 (01:16→17:58)
[2019-09-16] MEDS: PIPERACILLIN/TAZO/PMX 2.25GM 50 ML IV SCH ×3 (01:16→17:54)
[2019-09-16 05:20] VITALS: BP 132/93
[2019-09-16 06:46] VITALS: BP 135/86
[2019-09-16 06:57] LABS: ALANINE AMINOTRANSFERASE 31 U/L (12-78); ALBUMIN 3.5 g/dL (3.4-5.0); ANION GAP 13 mmol/L (5-15); CALCIUM 8.9 mg/dL (8.5-10.1); CHLORIDE 105 mmol/L (98-107); CREATININE 5.31 mg/dL (0.7-1.3)
[2019-09-16 07:00] LABS: ALKALINE PHOSPHATASE 63 U/L (45-117); BILIRUBIN,TOTAL 0.5 mg/dL (0.2-1.0); TOTAL PROTEIN 8.6 g/dL (6.4-8.2); VANCOMYCIN,RANDOM 16.6 mcg/mL
[2019-09-16 07:25] LABS: BASOPHILS # (AUTO) 0.09 x10^3/uL (0-0.1); BASOPHILS % (AUTO) 1 % (0-1); EOSINOPHILS # (AUTO) 0.32 x10^3/uL (0-0.4); EOSINOPHILS % (AUTO) 5 % (1-7); LYMPHOCYTES # (AUTO) 1.79 x10^3/uL (1-3.4); LYMPHOCYTES % (AUTO) 25 % (22-44); MD SCAN; MEAN CORPUSCULAR HEMOGLOBIN 29.4 pg (27.5-34.5); MEAN CORPUSCULAR HGB CONC 32.8 g/dL (33.2-36.2); MEAN CORPUSCULAR VOLUME 89.6 fL (81-97); MONOCYTES # (AUTO) 0.77 x10^3/uL (0.2-0.8); MONOCYTES % (AUTO) 11 % (2-9); NEUTROPHILS # (AUTO) 4.08 x10^3/uL (1.8-6.8); NEUTROPHILS % (AUTO) 58 % (42-75); PLATELET COUNT 677 x10^3/uL (130-400); RED CELL DISTRIBUTION WIDTH 13.7 % (9.4-14.8)
[2019-09-16] MEDS ORDERED: VANCOMYCIN 1,300 MG in SODIUM CHLORIDE 0.9% 250 ML IV ONE (10:00)
[2019-09-16] MEDS: INSULIN LISPRO 100 UNITS/ML, PEN SQ-INSULIN SCH ×4 (10:21→20:57)
[2019-09-16] MEDS: SODIUM CHLORIDE FLUSH 10ML SYR IVF SCH ×2 (10:24→20:25)
[2019-09-16] MEDS: SODIUM CHLORIDE 0.9% 1,000 ML IV SCH ×2 (11:02→23:20)
[2019-09-16] MEDS: SENNA/DOCUSATE TABLET PO SCH ×2 (11:07→20:23)
[2019-09-16 12:36] VITALS: BP 135/88
[2019-09-16] MEDS ORDERED: POTASSIUM CHLORIDE 20 MEQ TAB.ER.PRT PO ONE (14:30)
[2019-09-16] MEDS ORDERED: PHARMACY MAY ADJ FOR RENAL FX MC PRN (14:30)
[2019-09-16] MEDS: ACYCLOVIR 400 MG TABLET PO SCH ×3 (15:56→20:24)
[2019-09-16 19:26] VITALS: BP 145/95
[2019-09-16] MEDS: DILTIAZEM 120 MG CAP.ER.12H PO SCH (20:23)
[2019-09-16] MEDS: QUETIAPINE 100MG TABLET PO SCH (20:24)
[2019-09-17 00:38] VITALS: BP 156/95
[2019-09-17] MEDS: PIPERACILLIN/TAZO/PMX 2.25GM 50 ML IV SCH ×3 (01:19→17:26)
[2019-09-17] MEDS: HEPARIN 5,000 UNITS/ML, 1ML SQ SCH ×3 (01:19→17:51)
[2019-09-17] MEDS: HALOPERIDOL 5 MG/ML IM PRN ×2 (02:59→17:28)
[2019-09-17] MEDS: ACYCLOVIR 400 MG TABLET PO SCH ×5 (05:41→20:54)
[2019-09-17 07:39] VITALS: BP 156/92
[2019-09-17] MEDS: INSULIN LISPRO 100 UNITS/ML, PEN SQ-INSULIN SCH ×4 (09:28→20:55)
[2019-09-17 09:55] LABS: BASOPHILS # (AUTO) 0.02 x10^3/uL (0-0.1); BASOPHILS % (AUTO) 0 % (0-1); EOSINOPHILS # (AUTO) 0.37 x10^3/uL (0-0.4); EOSINOPHILS % (AUTO) 5 % (1-7); LYMPHOCYTES # (AUTO) 1.49 x10^3/uL (1-3.4); LYMPHOCYTES % (AUTO) 19 % (22-44); MD NO; MEAN CORPUSCULAR HEMOGLOBIN 29.9 pg (27.5-34.5); MEAN CORPUSCULAR HGB CONC 33.6 g/dL (33.2-36.2); MEAN PLATELET VOLUME 6.6 fL (7.4-10.4); MONOCYTES # (AUTO) 0.75 x10^3/uL (0.2-0.8); MONOCYTES % (AUTO) 10 % (2-9); NEUTROPHILS # (AUTO) 5.21 x10^3/uL (1.8-6.8); NEUTROPHILS % (AUTO) 66 % (42-75); PLATELET COUNT 693 x10^3/uL (130-400); RED CELL DISTRIBUTION WIDTH 14.2 % (9.4-14.8)
[2019-09-17 10:03] LABS: ANION GAP 12 mmol/L (5-15); CHLORIDE 109 mmol/L (98-107); CREATININE 4.55 mg/dL (0.7-1.3)
[2019-09-17] MEDS: SODIUM CHLORIDE 0.9% 1,000 ML IV SCH (10:40)
[2019-09-17] MEDS: SENNA/DOCUSATE TABLET PO SCH ×2 (10:43→20:54)
[2019-09-17] MEDS: SODIUM CHLORIDE FLUSH 10ML SYR IVF SCH ×2 (10:43→20:53)
[2019-09-17] MEDS: QUETIAPINE 100MG TABLET PO SCH ×2 (10:43→20:54)
[2019-09-17 13:03] VITALS: BP 131/77
[2019-09-17] MEDS: ESTRADIOL CYPIONATE IM SCH (13:03)
[2019-09-17 19:05] LABS: ANION GAP 11 mmol/L (5-15); CALCIUM 8.6 mg/dL (8.5-10.1); CHLORIDE 106 mmol/L (98-107); CREATININE 4.44 mg/dL (0.7-1.3)
[2019-09-17 20:52] VITALS: BP 133/93
[2019-09-17] MEDS: DILTIAZEM 120 MG CAP.ER.12H PO SCH (20:55)
[2019-09-18] MEDS: PIPERACILLIN/TAZO/PMX 2.25GM 50 ML IV SCH ×3 (01:11→17:50)
[2019-09-18] MEDS: SODIUM CHLORIDE 0.9% 1,000 ML IV SCH ×2 (01:12→17:48)
[2019-09-18 01:17] VITALS: BP 155/94
[2019-09-18] MEDS: HEPARIN 5,000 UNITS/ML, 1ML SQ SCH ×3 (01:21→18:49)
[2019-09-18] MEDS: ACYCLOVIR 400 MG TABLET PO SCH ×5 (05:48→20:41)
[2019-09-18 06:49] LABS: MEAN CORPUSCULAR HEMOGLOBIN 29.8 pg (27.5-34.5); MEAN CORPUSCULAR HGB CONC 33.2 g/dL (33.2-36.2); MEAN CORPUSCULAR VOLUME 89.6 fL (81-97); PLATELET COUNT 572 x10^3/uL (130-400); RED BLOOD COUNT 3.28 x10^6/uL (4.38-5.82); RED CELL DISTRIBUTION WIDTH 14.2 % (9.4-14.8)
[2019-09-18 07:07] LABS: BASOPHILS # (AUTO) 0.08 x10^3/uL (0-0.1); BASOPHILS % (AUTO) 1 % (0-1); EOSINOPHILS # (AUTO) 0.42 x10^3/uL (0-0.4); EOSINOPHILS % (AUTO) 7 % (1-7); LYMPHOCYTES # (AUTO) 1.78 x10^3/uL (1-3.4); LYMPHOCYTES % (AUTO) 29 % (22-44); MD SCAN; MONOCYTES # (AUTO) 0.75 x10^3/uL (0.2-0.8); MONOCYTES % (AUTO) 12 % (2-9); NEUTROPHILS # (AUTO) 3.04 x10^3/uL (1.8-6.8); NEUTROPHILS % (AUTO) 50 % (42-75)
[2019-09-18 09:07] VITALS: BP 135/95
[2019-09-18] MEDS ORDERED: VANCOMYCIN 1,300 MG in SODIUM CHLORIDE 0.9% 250 ML IV ONE (10:00)
[2019-09-18] MEDS: INSULIN LISPRO 100 UNITS/ML, PEN SQ-INSULIN SCH ×4 (10:03→21:00)
[2019-09-18] MEDS: SODIUM CHLORIDE FLUSH 10ML SYR IVF SCH ×2 (10:04→20:40)
[2019-09-18] MEDS: SENNA/DOCUSATE TABLET PO SCH ×2 (11:24→20:40)
[2019-09-18] MEDS: QUETIAPINE 100MG TABLET PO SCH ×3 (11:24→20:41)
[2019-09-18 11:49] LABS: CHLORIDE 113 mmol/L (98-107)
[2019-09-18 12:00] LABS: ALANINE AMINOTRANSFERASE 28 U/L (12-78); ALBUMIN 3.4 g/dL (3.4-5.0); ALKALINE PHOSPHATASE 63 U/L (45-117); ANION GAP 8 mmol/L (5-15); BILIRUBIN,TOTAL 0.6 mg/dL (0.2-1.0); CALCIUM 8.8 mg/dL (8.5-10.1); CREATININE 4.08 mg/dL (0.7-1.3); TOTAL PROTEIN 8.3 g/dL (6.4-8.2)
[2019-09-18 14:16] VITALS: BP 145/91
[2019-09-18 18:05] LABS: ALBUMIN 3.2 g/dL (3.4-5.0); ANION GAP 8 mmol/L (5-15); CALCIUM 8.5 mg/dL (8.5-10.1); CHLORIDE 114 mmol/L (98-107); CREATININE 4.04 mg/dL (0.7-1.3)
[2019-09-18 19:49] VITALS: BP 139/81
[2019-09-18] MEDS: DILTIAZEM 120 MG CAP.ER.12H PO SCH (20:41)
[2019-09-19 00:44] VITALS: BP 132/84
[2019-09-19] MEDS: PIPERACILLIN/TAZO/PMX 2.25GM 50 ML IV SCH ×3 (01:10→17:05)
[2019-09-19] MEDS: HEPARIN 5,000 UNITS/ML, 1ML SQ SCH ×4 (01:10→17:05)
[2019-09-19] MEDS: ACYCLOVIR 400 MG TABLET PO SCH ×6 (05:29→20:49)
[2019-09-19] MEDS: SODIUM CHLORIDE 0.9% 1,000 ML IV SCH (05:29)
[2019-09-19 06:20] LABS: ALANINE AMINOTRANSFERASE 21 U/L (12-78); ALBUMIN 3.2 g/dL (3.4-5.0); ANION GAP 11 mmol/L (5-15); CALCIUM 8.8 mg/dL (8.5-10.1); CHLORIDE 113 mmol/L (98-107); CREATININE 4.04 mg/dL (0.7-1.3)
[2019-09-19 06:21] LABS: MEAN CORPUSCULAR HEMOGLOBIN 29.3 pg (27.5-34.5); MEAN CORPUSCULAR HGB CONC 32.9 g/dL (33.2-36.2); MEAN PLATELET VOLUME 6.9 fL (7.4-10.4); PLATELET COUNT 576 x10^3/uL (130-400); RED BLOOD COUNT 3.37 x10^6/uL (4.38-5.82)
[2019-09-19 06:22] LABS: ALKALINE PHOSPHATASE 60 U/L (45-117); BILIRUBIN,TOTAL 0.9 mg/dL (0.2-1.0)
[2019-09-19 06:33] LABS: BASOPHILS # (AUTO) 0.08 x10^3/uL (0-0.1); BASOPHILS % (AUTO) 1 % (0-1); EOSINOPHILS # (AUTO) 0.34 x10^3/uL (0-0.4); EOSINOPHILS % (AUTO) 6 % (1-7); LYMPHOCYTES # (AUTO) 1.86 x10^3/uL (1-3.4); LYMPHOCYTES % (AUTO) 30 % (22-44); MD SCAN; MONOCYTES % (AUTO) 10 % (2-9); NEUTROPHILS # (AUTO) 3.32 x10^3/uL (1.8-6.8); NEUTROPHILS % (AUTO) 54 % (42-75)
[2019-09-19] MEDS: INSULIN LISPRO 100 UNITS/ML, PEN SQ-INSULIN SCH ×4 (07:00→20:30)
[2019-09-19 07:20] VITALS: BP 128/66
[2019-09-19] MEDS: SENNA/DOCUSATE TABLET PO SCH ×3 (09:00→20:46)
[2019-09-19] MEDS: QUETIAPINE 100MG TABLET PO SCH ×4 (09:00→20:46)
[2019-09-19] MEDS: SODIUM CHLORIDE FLUSH 10ML SYR IVF SCH ×2 (09:31→20:46)
[2019-09-19 12:14] VITALS: BP 136/87
[2019-09-19] MEDS ORDERED: QUETIAPINE 25MG TABLET ONE (12:41)
[2019-09-19 20:02] VITALS: BP 155/97
[2019-09-19 20:40] VITALS: BP 142/89
[2019-09-19] MEDS: DILTIAZEM 120 MG CAP.ER.12H PO SCH (20:46)
[2019-09-20] MEDS: HEPARIN 5,000 UNITS/ML, 1ML SQ SCH ×3 (01:00→17:00)
[2019-09-20 01:16] VITALS: BP 142/84
[2019-09-20] MEDS: PIPERACILLIN/TAZO/PMX 2.25GM 50 ML IV SCH ×2 (01:57→09:17)
[2019-09-20] MEDS: ACYCLOVIR 400 MG TABLET PO SCH ×5 (05:15→21:09)
[2019-09-20 05:51] LABS: ALBUMIN 3.3 g/dL (3.4-5.0); ANION GAP 9 mmol/L (5-15); CALCIUM 8.8 mg/dL (8.5-10.1); CHLORIDE 113 mmol/L (98-107)
[2019-09-20 05:53] LABS: CREATININE 4.02 mg/dL (0.7-1.3); MEAN CORPUSCULAR HEMOGLOBIN 29.5 pg (27.5-34.5); MEAN CORPUSCULAR VOLUME 89.6 fL (81-97); MEAN PLATELET VOLUME 6.8 fL (7.4-10.4); PLATELET COUNT 533 x10^3/uL (130-400); RED BLOOD COUNT 3.08 x10^6/uL (4.38-5.82); RED CELL DISTRIBUTION WIDTH 14.1 % (9.4-14.8)
[2019-09-20 05:54] LABS: ALANINE AMINOTRANSFERASE 19 U/L (12-78); ALKALINE PHOSPHATASE 61 U/L (45-117); BILIRUBIN,TOTAL 0.7 mg/dL (0.2-1.0); TOTAL PROTEIN 8.3 g/dL (6.4-8.2)
[2019-09-20 06:40] LABS: BASOPHILS # (AUTO) 0.09 x10^3/uL (0-0.1); BASOPHILS % (AUTO) 1 % (0-1); EOSINOPHILS # (AUTO) 0.41 x10^3/uL (0-0.4); EOSINOPHILS % (AUTO) 6 % (1-7); LYMPHOCYTES # (AUTO) 1.62 x10^3/uL (1-3.4); LYMPHOCYTES % (AUTO) 23 % (22-44); MD SCAN; MONOCYTES # (AUTO) 0.81 x10^3/uL (0.2-0.8); MONOCYTES % (AUTO) 12 % (2-9); NEUTROPHILS # (AUTO) 4.04 x10^3/uL (1.8-6.8); NEUTROPHILS % (AUTO) 58 % (42-75)
[2019-09-20] MEDS: INSULIN LISPRO 100 UNITS/ML, PEN SQ-INSULIN SCH ×4 (07:00→21:00)
[2019-09-20] MEDS: QUETIAPINE 100MG TABLET PO SCH ×2 (09:16→21:09)
[2019-09-20] MEDS: SENNA/DOCUSATE TABLET PO SCH ×2 (09:16→21:09)
[2019-09-20] MEDS: SODIUM CHLORIDE FLUSH 10ML SYR IVF SCH ×2 (09:17→21:10)
[2019-09-20 09:28] VITALS: BP 138/64
[2019-09-20] MEDS ORDERED: POTASSIUM CHLORIDE 20 MEQ in SODIUM CHLORIDE 0.9% 1,000 ML IV SCH (10:00)
[2019-09-20] MEDS: NS + 20MEQ KCL 1,000 ML IV SCH (11:37)
[2019-09-20] MEDS ORDERED: VANCOMYCIN 1,300 MG in SODIUM CHLORIDE 0.9% 250 ML IV SCH (12:00)
[2019-09-20 12:53] VITALS: BP 138/91
[2019-09-20 19:54] VITALS: BP 153/85
[2019-09-20] MEDS: DILTIAZEM 120 MG CAP.ER.12H PO SCH (21:09)
[2019-09-20 21:10] VITALS: BP 134/86
[2019-09-21] MEDS: HEPARIN 5,000 UNITS/ML, 1ML SQ SCH ×3 (01:00→16:57)
[2019-09-21 01:05] VITALS: BP 147/80
[2019-09-21] MEDS: ACYCLOVIR 400 MG TABLET PO SCH ×6 (05:08→20:35)
[2019-09-21] MEDS: NS + 20MEQ KCL 1,000 ML IV SCH ×2 (05:34→20:28)
[2019-09-21 06:55] VITALS: BP 129/75
[2019-09-21] MEDS: INSULIN LISPRO 100 UNITS/ML, PEN SQ-INSULIN SCH ×4 (07:00→20:21)
[2019-09-21] MEDS: QUETIAPINE 100MG TABLET PO SCH ×2 (08:56→20:35)
[2019-09-21] MEDS: SODIUM CHLORIDE FLUSH 10ML SYR IVF SCH ×2 (08:57→20:36)
[2019-09-21] MEDS: SENNA/DOCUSATE TABLET PO SCH ×2 (08:57→20:35)
[2019-09-21 10:00] LABS: ALBUMIN 3.3 g/dL (3.4-5.0); CALCIUM 8.6 mg/dL (8.5-10.1); CREATININE 3.63 mg/dL (0.7-1.3)
[2019-09-21 10:08] LABS: BASOPHILS # (AUTO) 0.06 x10^3/uL (0-0.1); BASOPHILS % (AUTO) 1 % (0-1); EOSINOPHILS # (AUTO) 0.25 x10^3/uL (0-0.4); EOSINOPHILS % (AUTO) 4 % (1-7); LYMPHOCYTES # (AUTO) 1.75 x10^3/uL (1-3.4); LYMPHOCYTES % (AUTO) 25 % (22-44); MD NO; MEAN CORPUSCULAR HEMOGLOBIN 29.5 pg (27.5-34.5); MEAN CORPUSCULAR HGB CONC 33.3 g/dL (33.2-36.2); MEAN CORPUSCULAR VOLUME 88.5 fL (81-97); MEAN PLATELET VOLUME 6.8 fL (7.4-10.4); MONOCYTES # (AUTO) 0.83 x10^3/uL (0.2-0.8); MONOCYTES % (AUTO) 12 % (2-9); NEUTROPHILS % (AUTO) 59 % (42-75); PLATELET COUNT 471 x10^3/uL (130-400); RED BLOOD COUNT 2.98 x10^6/uL (4.38-5.82); RED CELL DISTRIBUTION WIDTH 13.8 % (9.4-14.8)
[2019-09-21 10:23] LABS: ALANINE AMINOTRANSFERASE 16 U/L (12-78); ALKALINE PHOSPHATASE 58 U/L (45-117); ANION GAP 11 mmol/L (5-15); BILIRUBIN,TOTAL 0.3 mg/dL (0.2-1.0); CHLORIDE 110 mmol/L (98-107)
[2019-09-21 15:08] VITALS: BP 132/62
[2019-09-21 18:59] VITALS: BP 127/58
[2019-09-21 20:30] VITALS: BP 115/84
[2019-09-21] MEDS: DILTIAZEM 120 MG CAP.ER.12H PO SCH (20:35)
[2019-09-22] MEDS: HEPARIN 5,000 UNITS/ML, 1ML SQ SCH ×3 (01:00→17:06)
[2019-09-22 04:30] VITALS: BP 138/79
[2019-09-22 05:18] LABS: BASOPHILS # (AUTO) 0.06 x10^3/uL (0-0.1); BASOPHILS % (AUTO) 1 % (0-1); EOSINOPHILS # (AUTO) 0.37 x10^3/uL (0-0.4); EOSINOPHILS % (AUTO) 6 % (1-7); LYMPHOCYTES # (AUTO) 2.36 x10^3/uL (1-3.4); LYMPHOCYTES % (AUTO) 38 % (22-44); MD NO; MEAN CORPUSCULAR HEMOGLOBIN 29.4 pg (27.5-34.5); MEAN CORPUSCULAR HGB CONC 32.7 g/dL (33.2-36.2); MEAN CORPUSCULAR VOLUME 89.8 fL (81-97); MEAN PLATELET VOLUME 6.9 fL (7.4-10.4); MONOCYTES # (AUTO) 0.77 x10^3/uL (0.2-0.8); MONOCYTES % (AUTO) 12 % (2-9); NEUTROPHILS # (AUTO) 2.73 x10^3/uL (1.8-6.8); NEUTROPHILS % (AUTO) 43 % (42-75); PLATELET COUNT 466 x10^3/uL (130-400); RED BLOOD COUNT 3.02 x10^6/uL (4.38-5.82); RED CELL DISTRIBUTION WIDTH 14.2 % (9.4-14.8)
[2019-09-22 05:19] LABS: ALBUMIN 3.2 g/dL (3.4-5.0); ANION GAP 10 mmol/L (5-15); CHLORIDE 112 mmol/L (98-107)
[2019-09-22 05:30] LABS: ALANINE AMINOTRANSFERASE 14 U/L (12-78); ALKALINE PHOSPHATASE 56 U/L (45-117); BILIRUBIN,TOTAL 0.5 mg/dL (0.2-1.0); TOTAL PROTEIN 7.9 g/dL (6.4-8.2)
[2019-09-22] MEDS: ACYCLOVIR 400 MG TABLET PO SCH ×2 (05:54→11:31)
[2019-09-22] MEDS: INSULIN LISPRO 100 UNITS/ML, PEN SQ-INSULIN SCH ×4 (07:16→20:58)
[2019-09-22] MEDS: QUETIAPINE 100MG TABLET PO SCH ×2 (08:23→21:29)
[2019-09-22] MEDS: SODIUM CHLORIDE FLUSH 10ML SYR IVF SCH ×2 (08:23→21:30)
[2019-09-22] MEDS: SENNA/DOCUSATE TABLET PO SCH ×2 (08:23→21:30)
[2019-09-22] MEDS: NS + 20MEQ KCL 1,000 ML IV SCH (09:02)
[2019-09-22 09:07] VITALS: BP 129/89
[2019-09-22 12:27] VITALS: BP 141/95
[2019-09-22] MEDS: ACETAMINOPHEN 325 MG TABLET PO PRN (15:19)
[2019-09-22 19:00] VITALS: BP 142/88
[2019-09-22] MEDS: DILTIAZEM 120 MG CAP.ER.12H PO SCH (21:30)
[2019-09-23] MEDS: HEPARIN 5,000 UNITS/ML, 1ML SQ SCH ×2 (01:07→10:06)
[2019-09-23 01:08] VITALS: BP 116/77
[2019-09-23 06:14] LABS: BASOPHILS # (AUTO) 0.08 x10^3/uL (0-0.1); BASOPHILS % (AUTO) 2 % (0-1); EOSINOPHILS # (AUTO) 0.39 x10^3/uL (0-0.4); EOSINOPHILS % (AUTO) 7 % (1-7); LYMPHOCYTES # (AUTO) 1.93 x10^3/uL (1-3.4); LYMPHOCYTES % (AUTO) 35 % (22-44); MD NO; MEAN CORPUSCULAR HEMOGLOBIN 29.8 pg (27.5-34.5); MEAN CORPUSCULAR HGB CONC 33.5 g/dL (33.2-36.2); MEAN PLATELET VOLUME 7.2 fL (7.4-10.4); MONOCYTES # (AUTO) 0.79 x10^3/uL (0.2-0.8); MONOCYTES % (AUTO) 14 % (2-9); NEUTROPHILS # (AUTO) 2.39 x10^3/uL (1.8-6.8); NEUTROPHILS % (AUTO) 43 % (42-75); PLATELET COUNT 452 x10^3/uL (130-400)
[2019-09-23 06:34] LABS: ALBUMIN 3.3 g/dL (3.4-5.0); ANION GAP 6 mmol/L (5-15); CALCIUM 9.4 mg/dL (8.5-10.1); CHLORIDE 112 mmol/L (98-107)
[2019-09-23] MEDS: INSULIN LISPRO 100 UNITS/ML, PEN SQ-INSULIN SCH ×2 (07:47→11:20)
[2019-09-23 08:46] VITALS: BP 133/83
[2019-09-23] MEDS: SENNA/DOCUSATE TABLET PO SCH (10:05)
[2019-09-23] MEDS: QUETIAPINE 100MG TABLET PO SCH (10:06)
[2019-09-23] MEDS: SODIUM CHLORIDE FLUSH 10ML SYR IVF SCH (10:10)
[2019-09-23] MEDS: ACETAMINOPHEN 325 MG TABLET PO PRN (12:22)
[2019-09-23] MEDS ORDERED: QUET100T PO ×2 (14:01)
[2019-09-23] MEDS ORDERED: DILT120C11 PO (14:01)
[2019-09-23] MEDS ORDERED: CLON1TAB11 PO (14:01)
== END 2019-09-23 15:45 | DRG 871 ==
LOC: ED 21:26 → EDIP 22:17 → CCU 22:52 → 5SO 09-04 19:51 → 4WST 09-05 09:22 → 4NW 09-14 20:15 → 4WST 09-19 19:27
PROVIDERS: ADMIT Family Medicine; ATTEND Hospitalist
PROC: 5A1945Z Respiratory Ventilation, 24-96 Consecutive Hours (ICD-10-PCS; principal; 2019-09-02)
PROC: 0BH17EZ Insertion of Endotracheal Airway into Trachea, Via Natural or Artificial Opening (ICD-10-PCS; 2019-09-02)
PROC: 02HV33Z Insertion of Infusion Device into Superior Vena Cava, Percutaneous Approach (ICD-10-PCS; 2019-09-02)
PROC: B548ZZA Ultrasonography of Superior Vena Cava, Guidance (ICD-10-PCS; 2019-09-02)
DX: A41.9 Sepsis, unspecified organism (principal); E43 Unspecified severe protein-calorie malnutrition; G92 Toxic encephalopathy; J15.211 Pneumonia due to Methicillin susceptible Staphylococcus aureus; J69.0 Pneumonitis due to inhalation of food and vomit; J96.01 Acute respiratory failure with hypoxia; N17.0 Acute kidney failure with tubular necrosis; Z68.1 Body mass index [BMI] 19.9 or less, adult; Z99.11 Dependence on respirator [ventilator] status; B00.9 Herpesviral infection, unspecified; D63.8 Anemia in other chronic diseases classified elsewhere; D69.6 Thrombocytopenia, unspecified; E10.649 Type 1 diabetes mellitus with hypoglycemia without coma; E83.39 Other disorders of phosphorus metabolism; E83.51 Hypocalcemia; E87.5 Hyperkalemia; E87.6 Hypokalemia; F39 Unspecified mood [affective] disorder; I10 Essential (primary) hypertension; K12.1 Other forms of stomatitis; T50.902A Poisoning by unspecified drugs, medicaments and biological substances, intentional self-harm, initial encounter; Z79.4 Long term (current) use of insulin; Z79.899 Other long term (current) drug therapy; Y93.89 Activity, other specified; Y92.89 Other specified places as the place of occurrence of the external cause; Y99.8 Other external cause status; Z99.2 Dependence on renal dialysis; Z03.818 Encounter for observation for suspected exposure to other biological agents ruled out
CPT/HCPCS: 31500; 36415; 36600; 77001; 84145; 87806; 96361; 96365; 96375; 99291; J3490; 36556; 70450; 71045; 76770; 76937; 80048; 80053; 80061; 80069; 80202; 80307; 81001; 82010; 82040; 82150; 82306; 82330; 82550; 82570; 82693; 82728; 82803; 82962; 83036; 83540; 83550; 83605; 83690; 83735; 83930; 83970; 84100; 84156; 84478; 84550; 84600; 85025; 85610; 85730; 86705; 86706; 87040; 87070; 87077; 87081; 87086; 87147; 87186; 87205; 87340; 87529; 90935; 93005; 94002; 94003; 94150; G0378; J1000; J1644; J1815; J2405; J2543; J2704; J3010; J3370; J3411; J3480; J7070; C1751; G0475; J1451; J1630; J1642; J7030; J7050; U0001